=== PATIENT | male | born 1960 | race African-American/Black ===

== ENCOUNTER 2016-03-25 20:34 | Emergency (ER) | payer BC ==
[2016-03-25 20:52] VITALS: O2SAT 99
[2016-03-25] MEDS ORDERED: BACITRACIN-POLYMYXIN B OINT U/D PACK TOP ONE (20:58)
[2016-03-25] MEDS ORDERED: POVIDONE IODINE 10 % 15 ML UD TOP ONE (20:58)
[2016-03-25] MEDS ORDERED: LIDOCAINE 1% W/ EPINEPHRINE 20 ML VIAL INJ ONE (20:59)
--- NOTE | 2016-03-25 21:01 | ED.PDOC ---
History of Present Illness - General Chief Complaint: Skin/Abrasion/Tear Stated Complaint: abcess to rt hip Time Seen by Provider: 03/25/16 20:58 Source: patient Exam Limitations: no limitations - History of Present Illness Initial Comments: He stated he was diagnosed with cutaneous abscess one week ago and was initially seen at [facility] was prescribed antibiotics Bactrim and no i/d was done since it was still hard. Timing/Duration: other - 7 days Severity: moderate Location: extremities Improving Factors: nothing Worsening Factors: nothing Associated Symptoms: denies symptoms Allergies/Adverse Reactions: Allergies NO KNOWN ALLERGY Allergy (Unverified 10/18/12 14:07) Home Medications: Ambulatory Orders Aspirin [Baby Aspirin] 81 mg PO AM 10/18/12 Lisinopril 10 mg PO AM 10/18/12 Metoprolol Succinate [Metoprolol Succinate ER] 100 mg PO AM 10/18/12 Multiple Vitamin [Daily Vitamin] 1 tab PO AM 10/18/12 Review of Systems - Review of Systems Constitutional: States: no symptoms reported EENTM: States: no symptoms reported Respiratory: States: no symptoms reported Cardiology: States: no symptoms reported Gastrointestinal/Abdominal: States: no symptoms reported Genitourinary: States: no symptoms reported Musculoskeletal: States: no symptoms reported Skin: States: see HPI Neurological: States: no symptoms reported Endocrine: States: no symptoms reported Hematologic/Lymphatic: States: no symptoms reported Past Medical History (General) - Patient Medical History Hx Seizures: No Hx Stroke: No Hx Dementia: No Hx Asthma: No Hx of COPD: No Hx Cardiac Disorders: Yes Hx Congestive Heart Failure: No Hx Pacemaker: No Hx Hypertension: Yes Hx Thyroid Disease: No Hx Diabetes: No Hx Gastroesophageal Reflux: No Hx Renal Disease: No Hx Cancer: No Hx of HIV: No Hx Hepatitis C: No Hx MRSA: No Surgical History: no surgical history - Vaccination History Hx Tetanus, Diphtheria Vaccination: No Hx Influenza Vaccination: No - Social History Hx Tobacco Use: No Hx Alcohol Use: No Hx Substance Use: No Hx Substance Use Treatment: No Hx Depression: No - Activities of Daily Living Patient Lives Alone: No - - Triage Comment ED Triage Comment: painful area to right hip Family Medical History - Family History Mother Family History: No Known Hx Family Hypertension: Yes Hx Family Cancer: Yes - prostate-brother;multiple myeloma-mom Physical Exam - Physical Exam General Appearance: Alert, Comfortable, No apparent distress Eyes, Ears, Nose, Throat Exam: normal ENT inspection, TMs normal Neck: non-tender, full range of motion, supple Cardiovascular/Chest: normal peripheral pulses, regular rate, rhythm, no edema Respiratory: chest non-tender, lungs clear, normal breath sounds, no respiratory distress Gastrointestinal/Abdominal: normal bowel sounds, non tender, soft, no organomegaly Extremity: normal range of motion, non-tender, normal inspection Neurologic: no motor/sensory deficits, alert, normal mood/affect, oriented x 3 Skin Exam: warm/dry, normal color Skin Problem Location: lower extremities - right hip Skin Character: abscess - 2.5 cmx 2.5 cm right hip area Procedures - Incision and Drainage #1 Site: right hip area Procedure and Prep: betadine prep, sterile drapes applied, sterile dressings applied, irrigated - sterile saline, pus drained - 2cc, other - packed with sterile 4x4 Blade Size: 11 Departure - Departure Clinical Impression: Abscess of hip, right Time of Disposition: 21:32 Disposition: Discharge to Home or Self Care Condition: Good Departure Forms: ED Discharge - Pt. Copy, Patient Portal Self Enrollment Instructions: DI for Skin Abscess Referrals: Dwain Johnston MD [Primary Care Provider] - 1-2 Weeks Home Medications: Ambulatory Orders Aspirin [Baby Aspirin] 81 mg PO AM 10/18/12 Lisinopril 10 mg PO AM 10/18/12 Metoprolol Succinate [Metoprolol Succinate ER] 100 mg PO AM 10/18/12 Multiple Vitamin [Daily Vitamin] 1 tab PO AM 10/18/12 Additional Instructions: Removal of packing 03/27/2016 [facility] ER;Excuse from work 03/26/2016 had abscess drained;Return to work 03/27/2016 without restrictions;Continue with antibiotics
[2016-03-25 21:54] VITALS: BP 143/92; TEMP 97.9
== END 2016-03-25 21:54 | disposition home or self-care (01) ==
LOC: ER 20:34
DX: L02.415 Cutaneous abscess of right lower limb (principal); I10 Essential (primary) hypertension; Z79.82 Long term (current) use of aspirin; Z79.899 Other long term (current) drug therapy; Z80.42 Family history of malignant neoplasm of prostate

== ENCOUNTER → 2016-06-23 | Outpatient (CLI) | payer BC | END | disposition home or self-care (01) | LOC: GMAM 10:19 | PROVIDERS: ATTEND Family Medicine | DX: D47.2 Monoclonal gammopathy (principal) ==

== ENCOUNTER → 2017-03-25 | Outpatient (CLI) | payer BC | LOC: GMAM 13:17 | PROVIDERS: ATTEND Family Medicine | DX: Z12.5 Encounter for screening for malignant neoplasm of prostate (principal) ==

== ENCOUNTER → 2017-04-21 | Outpatient (CLI) | payer BC ==
--- NOTE | 2017-04-22 09:42 | US ---
THYROID ULTRASOUND CLINICAL INFORMATION: Thyroid nodule. TECHNIQUE: Standard transcutaneous scanning, two-dimensional and Doppler modes. COMPARISON: None. FINDINGS: Thyroid size: Right lobe-4.1 x 2.1 x 1.7 cm. Left lobe-3.8 x 1.4 x 1.1 cm. Isthmus-0.29 cm. Texture: Heterogeneous. Estimated total number of nodules >/=1 cm: 1 Number of spongiform nodules >/=2 cm not described below (TR1): 0 Number of mixed cystic and solid nodules >/=1.5 cm not described below (TR2): 0 Nodule #: 1 Maximum size: 1.4 cm; All dimensions 1.4 x 1.0 cm Location: right; mid lower. Composition: solid/almost completely solid (2) Echogenicity: hypoechoic (2) Shape: not [id number] (0) Margins: smooth (0) Echogenic foci: none (0) ACR TI-RADS total points: 4. ACR TI-RADS risk category: TR4 (4-6 points) Significant change in size (>/= 20% in two dimensions and minimal increase of 2 mm): No. Baseline study at this facility. Change in features: No Change in ACR TI-RADS risk category: No ACR TI-RADS recommendation: Follow-up ultrasound in 1 year. No distinct solid masses parenchymal edema, cysts, or calcifications in the adjacent soft tissues. IMPRESSION: 1. 1.4 cm hypoechoic solid nodule in the mid to lower right lobe with no calcifications and parallel orientation. Consider thyroid ultrasound follow-up in one year interval. Please see ACR BI-RADS recommendations below.* 2. No distinct solid masses parenchymal edema, cysts, or calcifications in the adjacent soft tissues. *ACR TI-RADS recommendations: TR5 (>/=7 points) - FNA if >/=1 cm, follow-up if 0.5 - 0.9 cm every year for 5 years TR4 (4-6 points) - FNA if >/=1.5 cm, follow-up if 1 - 1.4 cm in 1, 2, 3 and 5 years TR3 (3 points) - FNA if >/=2.5 cm, follow -up if 1.5 - 2.4 cm in 1, 3 and 5 years TR2 (2 points) and TR1 (0 points) - No FNA or follow-up * ACR TI-RADS recommends that no more than two nodules with the highest ACR TI-RADS total point should be biopsied and no more than four nodules should be followed. Electronically signed by: Mike Kearney MD 04/22/2017 9:38 AM CDT
== END ==
LOC: US 13:22
PROVIDERS: ATTEND Family Medicine
DX: E04.1 Nontoxic single thyroid nodule (principal)

== ENCOUNTER → 2017-10-21 | Outpatient (CLI) | payer BC | LOC: GMAM 15:04 | PROVIDERS: ATTEND Family Medicine | DX: E04.9 Nontoxic goiter, unspecified (principal); I10 Essential (primary) hypertension; Z12.5 Encounter for screening for malignant neoplasm of prostate ==

== ENCOUNTER → 2019-09-29 | Outpatient (CLI) | payer BC | END | disposition home or self-care (01) | LOC: GMAM 16:39 | PROVIDERS: ATTEND Family Medicine | DX: Z12.5 Encounter for screening for malignant neoplasm of prostate (principal) ==